=== PATIENT | female | born 1985 | race African-American/Black ===

== ENCOUNTER 2017-01-31 07:23 | Emergency (ER) | payer SELFPAY ==
[~2017-01-31] VITALS: Ht 154.9 cm; Wt 68.0 kg
[~2017-01-31 07:23] MED LIST: NITR100C62 PO
[2017-01-31 07:40] VITALS: BP 148/85
[2017-01-31] MEDS ORDERED: SULF1TAB24 PO (08:03)
--- NOTE | 2017-01-31 08:03 | PHYS DOC ---
Past Medical History Past Medical History: No Pertinent History Past Surgical History: No Surgical History Alcohol Use: None Drug Use: Marijuana Adult General Chief Complaint Chief Complaint: OTHER COMPLAINTS HPI HPI Patient is a 31 year old female who presents with an abscess of the left great toe that she noted 3 days ago. Patient states the area started draining this morning while she was in the shower. Patient denies any fever. Denies any history of diabetes. Denies any other medical problems. Review of Systems Review of Systems Constitutional: Denies fever or chills [] Musculoskeletal: Denies back pain or joint pain [] Integument: abscess of the left great toe Neurologic: Denies headache, focal weakness or sensory changes [] Allergies Allergies Allergies Coded Allergies Type Severity Reaction Last Updated Verified No Known Drug Allergies 01/31/17 No Physical Exam Physical Exam Constitutional: Well developed, well nourished, no acute distress, non-toxic appearance. [] Skin: Warm, dry, no erythema, no rash. [] Back: Left great toe has a tiny open wound at the MTP joint on the ventral aspect with yellow drainage and surrounding approx. 1 cm of cellulitis. The area is warm to touch and very fluctuant. Neurovascular exam is intact to the left great toe. Extremities: No tenderness, no cyanosis, no clubbing, ROM intact, no edema. [] Neurologic: Alert and oriented X 3, normal motor function, normal sensory function, no focal deficits noted. [] Psychologic: Affect normal, judgement normal, mood normal. [] Current Patient Data Vital Signs Vital Signs Date Time Temp Pulse Resp B/P (MAP) Pulse Ox O2 Delivery O2 Flow Rate FiO2 01/31/17 07:40 98.3 82 18 148/85 (106) 99 Room Air 98.3 EKG EKG [] Radiology/Procedures Radiology/Procedures Indication: abscess and cellulitis of the left great toe Procedure: The patient was positioned appropriately. Local anesthesia was not applicable. Mild amount of yellow purulent bloody material was expressed. The drainage cavity was irrigated and covered. The patients tetanus status updated as needed. The patient tolerated the procedure well. Complications: none.[] Course & Med Decision Making Course & Med Decision Making Pertinent Labs and Imaging studies reviewed. (See chart for details) Patient has an abscess of the left great toe that was drained by me as noted in procedures. This is a superficial abscess with cellulitis. Patient was placed on Bactrim. Tetanus is up-to-date. She was provided wound care instructions as well as return precautions. She has no history of diabetes or vascular disease. She is to follow-up with her own PCP in 1-2 weeks. She was instructed to return to the ED if symptoms worsen. Dragon Disclaimer Dragon Disclaimer This electronic medical record was generated, in whole or in part, using a voice recognition dictation system. Departure Departure Impression: Primary Impression: Cellulitis and abscess of toe of left foot Disposition: HOME, SELF-CARE Condition: STABLE Referrals: NO PCP (PCP) Follow-up with your doctor in 1-2 weeks Patient Instructions: Abscess, Care After, Cellulitis, [id number] Additional Instructions: You were seen with an abscess with cellulitis of the left great toe. Keep the area clean and dry. Soak the area in Epson salted water twice a day. Complete your antibiotics. Follow-up with your doctor in 1-2 weeks. Return to the ED if symptoms worsen. Scripts Sulfamethoxazole/Trimethoprim (BACTRIM DS TABLET) 1 Each Tablet 1 TAB PO BID, #20 TAB Prov: KRISTA HERNANDEZ APRN 01/31/17 KRISTA HERNANDEZ APRN Jan 31, 2017 08:03
== END 2017-01-31 08:13 | disposition home or self-care (01) ==
LOC: ER 07:23
DX: L03.032 Cellulitis of left toe (principal); L02.612 Cutaneous abscess of left foot
CPT/HCPCS: 10060; 99283-25

== ENCOUNTER 2017-02-24 11:27 | Emergency (ER) | payer SELFPAY ==
[~2017-02-24] VITALS: Ht 157.5 cm; Wt 65.8 kg
[~2017-02-24 11:27] MED LIST changes: +SULF1TAB24 PO
--- NOTE | 2017-02-24 11:35 | PHYS DOC ---
Past Medical History Past Medical History: No Pertinent History Past Surgical History: No Surgical History Alcohol Use: None Drug Use: Marijuana Adult General Chief Complaint Chief Complaint: ABDOMINAL PAIN HPI HPI Patient is a 31 year old female who presents with is charge and irritation. She states his been going on for about 3 days. It's a clear discharge. She states also "smells funny" she also states that she feels slight discomfort when she urinates. She states she is sexually active she has had gonorrhea and Chlamydia in the past but is been several years ago with a different sexual partner. She denies any nausea vomiting or abdominal pain. Review of Systems Review of Systems Constitutional: Denies fever or chills [] Eyes: Denies change in visual acuity, redness, or eye pain [] HENT: Denies nasal congestion or sore throat [] Respiratory: Denies cough or shortness of breath [] Cardiovascular: No additional information not addressed in HPI [] GI: Denies abdominal pain, nausea, vomiting, bloody stools or diarrhea [] : Positive for dysuria. Musculoskeletal: Denies back pain or joint pain [] Integument: Denies rash or skin lesions [] Neurologic: Denies headache, focal weakness or sensory changes [] Endocrine: Denies polyuria or polydipsia [] Allergies Allergies Allergies Coded Allergies Type Severity Reaction Last Updated Verified No Known Drug Allergies 01/31/17 No Physical Exam Physical Exam Constitutional: Well developed, well nourished, no acute distress, non-toxic appearance. [] HENT: Normocephalic, atraumatic, bilateral external ears normal, oropharynx moist, no oral exudates, nose normal. [] Eyes: PERRLA, EOMI, conjunctiva normal, no discharge. [] Neck: Normal range of motion, no tenderness, supple, no stridor. [] Cardiovascular:Heart rate regular rhythm, no murmur [] Lungs & Thorax: Bilateral breath sounds clear to auscultation [] Abdomen/pelvic exam: Bowel sounds normal, soft, no tenderness, no masses, no pulsatile masses. Pelvic Exam: Professor Of Radiology present Abdomen: Nontender External Genitalia: Normal Skin Speculum: Normal vaginal mucosa, normal cervical discharge Bimanual: No adnexal masses or tenderness, No CMT Skin: Warm, dry, no erythema, no rash. [] Back: No tenderness, no CVA tenderness. [] Extremities: No tenderness, no cyanosis, no clubbing, ROM intact, no edema. [] Neurologic: Alert and oriented X 3, normal motor function, normal sensory function, no focal deficits noted. [] Psychologic: Affect normal, judgement normal, mood normal. [] Current Patient Data Vital Signs Vital Signs Date Time Temp Pulse Resp B/P (MAP) Pulse Ox O2 Delivery O2 Flow Rate FiO2 02/24/17 11:38 98.6 79 18 118/57 (77) 98 Room Air 98.6 Lab Values Laboratory Tests Test 02/24/17 11:48 02/24/17 12:41 02/24/17 13:15 POC Urine HCG, Qualitative Hcg negative (Negative) White Blood Count 5.8 x10^3/uL (4.0-11.0) Red Blood Count 4.57 x10^6/uL (3.50-5.40) Hemoglobin 12.7 g/dL (12.0-15.5) Hematocrit 37.9 % (36.0-47.0) Mean Corpuscular Volume 83 fL (79-100) Mean Corpuscular Hemoglobin 28 pg (25-35) Mean Corpuscular Hemoglobin Concent 34 g/dL (31-37) Red Cell Distribution Width 17.3 % (11.5-14.5) H Platelet Count 290 x10^3/uL (140-400) Neutrophils (%) (Auto) 56 % (31-73) Lymphocytes (%) (Auto) 31 % (24-48) Monocytes (%) (Auto) 10 % (0-9) H Eosinophils (%) (Auto) 2 % (0-3) Basophils (%) (Auto) 2 % (0-3) Neutrophils # (Auto) 3.3 x10^3uL (1.8-7.7) Lymphocytes # (Auto) 1.8 x10^3/uL (1.0-4.8) Monocytes # (Auto) 0.6 x10^3/uL (0.0-1.1) Eosinophils # (Auto) 0.1 x10^3/uL (0.0-0.7) Basophils # (Auto) 0.1 x10^3/uL (0.0-0.2) Sodium Level 139 mmol/L (136-145) Potassium Level 4.0 mmol/L (3.5-5.1) Chloride Level 104 mmol/L (98-107) Carbon Dioxide Level 26 mmol/L (21-32) Anion Gap 9 (6-14) Blood Urea Nitrogen 19 mg/dL (7-20) Creatinine 0.7 mg/dL (0.6-1.0) Estimated GFR (Cockcroft-Gault) 118.1 Glucose Level 85 mg/dL (70-99) Calcium Level 9.0 mg/dL (8.5-10.1) Total Bilirubin 0.2 mg/dL (0.2-1.0) Direct Bilirubin < 0.1 mg/dL (0.0-0.2) Aspartate Amino Transferase (AST) 20 U/L (15-37) Alanine Aminotransferase (ALT) 26 U/L (14-59) Alkaline Phosphatase 76 U/L (46-116) Total Protein 7.9 g/dL (6.4-8.2) Albumin 4.0 g/dL (3.4-5.0) Urine Collection Type Unknown Urine Color Yellow Urine Clarity Clear Urine pH 6.0 Urine Specific [place] 1.020 Urine Protein Negative mg/dL (NEG-TRACE) Urine Glucose (UA) Negative mg/dL (NEG) Urine Ketones (Stick) Negative mg/dL (NEG) Urine Blood Negative (NEG) Urine Nitrite Negative (NEG) Urine Bilirubin Negative (NEG) Urine Urobilinogen Dipstick 0.2 mg/dL (0.2 mg/dL) Urine Leukocyte Esterase Negative (NEG) Urine RBC 0 /HPF (0-2) Urine WBC Occ /HPF (0-4) Urine Squamous Epithelial Cells Few /LPF Urine Bacteria 0 /HPF (0-FEW) Urine Mucus Slight /LPF Laboratory Tests 02/24/17 12:41 Laboratory Tests 02/24/17 12:41 Microbiology 02/24/17 Wet Prep - Final, Complete Laboratory Tests Test 02/24/17 11:48 02/24/17 12:41 02/24/17 13:15 POC Urine HCG, Qualitative Hcg negative (Negative) White Blood Count 5.8 x10^3/uL (4.0-11.0) Red Blood Count 4.57 x10^6/uL (3.50-5.40) Hemoglobin 12.7 g/dL (12.0-15.5) Hematocrit 37.9 % (36.0-47.0) Mean Corpuscular Volume 83 fL (79-100) Mean Corpuscular Hemoglobin 28 pg (25-35) Mean Corpuscular Hemoglobin Concent 34 g/dL (31-37) Red Cell Distribution Width 17.3 % (11.5-14.5) H Platelet Count 290 x10^3/uL (140-400) Neutrophils (%) (Auto) 56 % (31-73) Lymphocytes (%) (Auto) 31 % (24-48) Monocytes (%) (Auto) 10 % (0-9) H Eosinophils (%) (Auto) 2 % (0-3) Basophils (%) (Auto) 2 % (0-3) Neutrophils # (Auto) 3.3 x10^3uL (1.8-7.7) Lymphocytes # (Auto) 1.8 x10^3/uL (1.0-4.8) Monocytes # (Auto) 0.6 x10^3/uL (0.0-1.1) Eosinophils # (Auto) 0.1 x10^3/uL (0.0-0.7) Basophils # (Auto) 0.1 x10^3/uL (0.0-0.2) Sodium Level 139 mmol/L (136-145) Potassium Level 4.0 mmol/L (3.5-5.1) Chloride Level 104 mmol/L (98-107) Carbon Dioxide Level 26 mmol/L (21-32) Anion Gap 9 (6-14) Blood Urea Nitrogen 19 mg/dL (7-20) Creatinine 0.7 mg/dL (0.6-1.0) Estimated GFR (Cockcroft-Gault) 118.1 Glucose Level 85 mg/dL (70-99) Calcium Level 9.0 mg/dL (8.5-10.1) Total Bilirubin 0.2 mg/dL (0.2-1.0) Direct Bilirubin < 0.1 mg/dL (0.0-0.2) Aspartate Amino Transferase (AST) 20 U/L (15-37) Alanine Aminotransferase (ALT) 26 U/L (14-59) Alkaline Phosphatase 76 U/L (46-116) Total Protein 7.9 g/dL (6.4-8.2) Albumin 4.0 g/dL (3.4-5.0) Urine Collection Type Unknown Urine Color Yellow Urine Clarity Clear Urine pH 6.0 Urine Specific [place] 1.020 Urine Protein Negative mg/dL (NEG-TRACE) Urine Glucose (UA) Negative mg/dL (NEG) Urine Ketones (Stick) Negative mg/dL (NEG) Urine Blood Negative (NEG) Urine Nitrite Negative (NEG) Urine Bilirubin Negative (NEG) Urine Urobilinogen Dipstick 0.2 mg/dL (0.2 mg/dL) Urine Leukocyte Esterase Negative (NEG) Urine RBC 0 /HPF (0-2) Urine WBC Occ /HPF (0-4) Urine Squamous Epithelial Cells Few /LPF Urine Bacteria 0 /HPF (0-FEW) Urine Mucus Slight /LPF Laboratory Tests 02/24/17 12:41 Laboratory Tests 02/24/17 12:41 Microbiology 02/24/17 Wet Prep - Final, Complete EKG EKG [] Radiology/Procedures Radiology/Procedures RUN DATE: 02/24/17 PAGE 1 RUN TIME: 1232 [facility] [address] [place] [address] Lopez Heaton M.D., [employer]ging [employer] PATIENT: SUJATA GONSALEZ Caitlin ACCT: [id number] LOC: [facility] U : [id number] AGE/SX: 31/F ROOM: REG : 02/24/[address]: MITUL DALE MD : 1985 BED: DIS : STATUS: REG [facility] TLOC: SPEC #: [id number] CEE: 02/24/17 STATUS: COMP REQ #: [id number] RECD: 02/24/[address] [facility] [address]: MITUL DALE MD SOURCE: VAGINAL ENTR: 02/24/[address] [facility] [address]: ROLANDO GUTIÉRREZ [facility]: ORDERED: WET PREP COMMENTS: Has specimen been collected/obtained? Y Procedure Result WET PREP Final YEAST NONE SEEN TRICHOMONAS NONE SEEN CLUE CELLS CLUE CELLS PRESENT ALTERED JAMI ALTERED JAMI PRESENT SUGGESTIVE OF BACTERIAL VAGINOSIS WBCS FEW END OF REPORT Impressions: Bacterial vaginosis Course & Med Decision Making Course & Med Decision Making Pertinent Labs and Imaging studies reviewed. (See chart for details) Pelvic exam did not show any tenderness. There was no bleeding. Wet mount is positive for bacterial vaginosis. She's being discharged with Flagyl for 7 days. Return precautions given. She is agreeable to the plan and being discharged in stable condition at this time. Dragon Disclaimer Dragon Disclaimer This electronic medical record was generated, in whole or in part, using a voice recognition dictation system. Departure Departure Impression: Primary Impression: Bacterial vaginosis Disposition: 01 HOME, SELF-CARE Condition: STABLE Referrals: NO PCP (PCP) Patient Instructions: Bacterial Vaginosis Additional Instructions: You have an overgrowth of the normal bacteria in your vagina that will need antibiotics for the next 7 days. This is not a sexually transmitted infection. Do not drink any alcohol or taking this medicine as alcohol this medicine does not mix and make sure sick to her stomach. Return back to the ER if you have any pain, nausea vomiting, fevers, or other concerns. Scripts Metronidazole (FLAGYL) 500 Mg Tablet 500 TAB PO BID, #14 TAB Prov: MITUL DALE MD 02/24/17 MITUL DALE MD Feb 24, 2017 11:35
[2017-02-24 12:55] LABS: BASO # 0.1 x10^3/uL (0.0-0.2); BASO % 2 % (0-3); EOS % 2 % (0-3); HEMATOCRIT 37.9 % (36.0-47.0); HEMOGLOBIN 12.7 g/dL (12.0-15.5); LYMPH # 1.8 x10^3/uL (1.0-4.8); LYMPH % 31 % (24-48); MEAN CORPUSCULAR HEMOGLOBIN 28 pg (25-35); MEAN CORPUSCULAR HGB CONC 34 g/dL (31-37); MEAN CORPUSCULAR VOLUME 83 fL (79-100); MONO % 10 % (0-9); NEUT % 56 % (31-73); PLATELET COUNT 290 x10^3/uL (140-400); RED BLOOD COUNT 4.57 x10^6/uL (3.50-5.40); RED CELL DISTRIBUTION WIDTH 17.3 % (11.5-14.5); WHITE BLOOD COUNT 5.8 x10^3/uL (4.0-11.0)
[2017-02-24 13:08] LABS: ANION GAP 9 (6-14); BLOOD UREA NITROGEN 19 mg/dL (7-20); CARBON DIOXIDE 26 mmol/L (21-32); CHLORIDE 104 mmol/L (98-107); CREATININE 0.7 mg/dL (0.6-1.0); GFR 118.1; GLUCOSE 85 mg/dL (70-99); SODIUM 139 mmol/L (136-145)
[2017-02-24 13:13] LABS: ALK PHOS 76 U/L (46-116); ALT (SGPT) 26 U/L (14-59); AST (SGOT) 20 U/L (15-37); DIRECT BILIRUBIN < 0.1 mg/dL (0.0-0.2); TOTAL BILIRUBIN 0.2 mg/dL (0.2-1.0); TOTAL PROTEIN 7.9 g/dL (6.4-8.2)
[2017-02-24 13:22] LABS: BILIRUBIN,URINE NEGATIVE (NEG); GLUCOSE,URINE NEGATIVE (NEG); NITRITE,URINE NEGATIVE (NEG); PROTEIN,URINE NEGATIVE (NEG-TRACE); UROBILINOGEN,URINE 0.2 mg/dL (0.2 mg/dL)
[2017-02-24 13:40] VITALS: BP 132/67
[2017-02-24 13:40] LABS: BACTERIA,URINE 0 /HPF (0-FEW); RBC,URINE 0 /HPF (0-2); SQUAMOUS EPITHELIAL CELL,UR FEW /LPF; WBC,URINE OCC /HPF (0-4)
[2017-02-24] MEDS ORDERED: METR500T PO (13:48)
== END 2017-02-24 13:52 | disposition home or self-care (01) ==
LOC: ER 11:27
DX: N76.0 Acute vaginitis (principal)
CPT/HCPCS: 36415; 80048; 80076; 81001; 81025; 85025; 87491; 87591; 99284; Q0111

== ENCOUNTER 2019-02-12 08:27 | Emergency (ER) | payer SELFPAY ==
[~2019-02-12] VITALS: Ht 154.9 cm; Wt 70.3 kg
[~2019-02-12 08:27] MED LIST changes: +METR500T PO
[2019-02-12 09:54] LABS: BILIRUBIN,URINE NEGATIVE (NEG); CLARITY,URINE CLEAR; COLOR,URINE YELLOW; NITRITE,URINE NEGATIVE (NEG); PH,URINE 6.5; PROTEIN,URINE NEGATIVE (NEG-TRACE); UROBILINOGEN,URINE 0.2 mg/dL (0.2 mg/dL)
[2019-02-12 10:02] LABS: BACTERIA,URINE FEW /HPF (0-FEW); SQUAMOUS EPITHELIAL CELL,UR MOD /LPF; WBC,URINE OCC /HPF (0-4)
[2019-02-12 10:03] LABS: RBC,URINE 0 /HPF (0-2)
[2019-02-12] MEDS ORDERED: cefTRIAXone IM 250 MG VIAL IM ONE (10:30)
[2019-02-12] MEDS ORDERED: AZITHROMYCIN 250 MG TABLET. PO ONE (10:30)
[2019-02-12] MEDS ORDERED: METR-34 PO (10:41)
--- NOTE | 2019-02-12 10:54 | PHYS DOC ---
Past Medical History Past Medical History: No Pertinent History Past Surgical History: No Surgical History Alcohol Use: None Drug Use: Marijuana Adult General Chief Complaint Chief Complaint: ABDOMINAL PAIN HPI HPI Patient is a 33 year old [F TWO WEEKS of vaginal discharge some pelvic pain after intercourse as well as lower abdominal pain for the last 2-3 weeks. Feels similar to last time she had bacterial vaginosis no vomiting Review of Systems Review of Systems Constitutional: Denies fever or chills [] Cardiovascular: No additional information not addressed in HPI [] GI: \ Neurologic: Denies headache, focal weakness or sensory changes [] Endocrine: Denies polyuria or polydipsia [] All other systems were reviewed and found to be within normal limits, except as documented in this note. Current Medications Current Medications Current Medications Medications (Trade) Dose Ordered Sig/Obed Start Time Stop Time Status Last Admin Dose Admin Azithromycin (Zithromax) 1,000 mg 1X ONCE 02/12/19 10:30 02/12/19 10:31 DC Ceftriaxone Sodium (Rocephin Im) 250 mg 1X ONCE 02/12/19 10:30 02/12/19 10:31 DC Allergies Allergies Allergies Coded Allergies Type Severity Reaction Last Updated Verified No Known Drug Allergies 01/31/17 No Physical Exam Physical Exam Constitutional: Well developed, well nourished, no acute distress, non-toxic appearance. [] HENT: Normocephalic, atraumatic, bilateral external ears normal, oropharynx moist, no oral exudates, nose normal. [] Eyes: PERRLA, EOMI, conjunctiva normal, no discharge. [] Neck: Normal range of motion, no tenderness, supple, no stridor. [] Cardiovascular:Heart rate regular rhythm, no murmur [] Lungs & Thorax: Bilateral breath sounds clear to auscultation [] Abdomen: Bowel sounds normal, soft MILD SUPRAPUBIC TENDERNESS no masses, no pulsatile masses. [] Skin: Warm, dry, no erythema, no rash. [] Back: No tenderness, no CVA tenderness. [] Extremities: No tenderness, no cyanosis, no clubbing, ROM intact, no edema. [] PELVIC MODERATE WHITE DISCHARGE NEG CMT OR ADNEXAL Neurologic: Alert and oriented X 3, normal motor function, normal sensory function, no focal deficits noted. [] Psychologic: Affect normal, judgement normal, mood normal. [] Current Patient Data Vital Signs Vital Signs Date Time Temp Pulse Resp B/P (MAP) Pulse Ox O2 Delivery O2 Flow Rate FiO2 02/12/19 09:25 98.2 72 18 147/79 (101) 99 Room Air 98.2 Lab Values Laboratory Tests Test 02/12/19 09:25 02/12/19 09:29 Urine Collection Type Unknown Urine Color Yellow Urine Clarity Clear Urine pH 6.5 Urine Specific Left Hand 1.025 Urine Protein Negative mg/dL (NEG-TRACE) Urine Glucose (UA) Negative mg/dL (NEG) Urine Ketones (Stick) Negative mg/dL (NEG) Urine Blood Negative (NEG) Urine Nitrite Negative (NEG) Urine Bilirubin Negative (NEG) Urine Urobilinogen Dipstick 0.2 mg/dL (0.2 mg/dL) Urine Leukocyte Esterase Negative (NEG) Urine RBC 0 /HPF (0-2) Urine WBC Occ /HPF (0-4) Urine Squamous Epithelial Cells Mod /LPF Urine Bacteria Few /HPF (0-FEW) Urine Mucus Marked /LPF POC Urine HCG, Qualitative Hcg negative (Negative) Microbiology 02/12/19 Wet Prep - Final, Complete EKG EKG [] Radiology/Procedures Radiology/Procedures [] Course & Med Decision Making Course & Med Decision Making Pertinent Labs and Imaging studies reviewed. (See chart for details) []DX: BV RX FLAGYL GAVE CTX AND AZITHRO IN ER WELL. ABDO EXAM BENIGN, SUBACUTE TIMEFRAME NO EVIDENCE OF PID Dragon Disclaimer Dragon Disclaimer This electronic medical record was generated, in whole or in part, using a voice recognition dictation system. Departure Departure Impression: Primary Impression: Bacterial vaginosis Disposition: HOME, SELF-CARE Condition: STABLE Patient Instructions: Bacterial Vaginosis, [id number] Scripts Metronidazole (METRONIDAZOLE) 500 Mg Tablet 1 TAB PO BID, #14 TAB Prov: LULI BRUNSON MD 02/12/19 LULI BRUNSON MD Feb 12, 2019 10:54
[2019-02-12 11:04] VITALS: BP 145/66
[2019-02-13 17:09] LABS: GC PROBE Negative (Negative)
== END 2019-02-12 11:05 | disposition home or self-care (01) ==
LOC: ER 08:27
DX: N76.0 Acute vaginitis (principal); B96.89 Other specified bacterial agents as the cause of diseases classified elsewhere
CPT/HCPCS: 81001; 81025; 87491; 87591; 96372; 99284; J0696; Q0111; Q0144

== ENCOUNTER 2020-06-28 10:32 | Emergency (ER) | payer SELFPAY ==
[~2020-06-28 10:32] MED LIST changes: +METR-34 PO
[2020-06-28] MEDS ORDERED: cefTRIAXone IM 500 MG VIAL. IM ONE ×2 (11:20→11:31)
[2020-06-28] MEDS ORDERED: DOXYCYCLINE HYCLATE 100 MG TABLET ONE ×2 (11:20→11:31)
[2020-06-28] MEDS ORDERED: metroNIDAZOLE 500 MG TABLET ONE ×2 (11:20→11:31)
[2020-06-28 14:36] LABS: BILIRUBIN,URINE NEGATIVE (NEG); CLARITY,URINE CLEAR; COLOR,URINE YELLOW; NITRITE,URINE NEGATIVE (NEG); PROTEIN,URINE NEGATIVE (NEG-TRACE); UROBILINOGEN,URINE 0.2 mg/dL (0.2 mg/dL)
[2020-06-28 14:51] LABS: AMORPHOUS SEDIMENT,UR PRESENT /HPF
[2020-06-28 14:55] LABS: HYALINE CASTS, URINE OCCASIONAL /HPF
[2020-06-28 14:57] LABS: BACTERIA,URINE 0 /HPF (0-FEW); RBC,URINE 0 /HPF (0-2)
[2020-06-30 12:49] LABS: GC PROBE Negative (Negative)
== END 2020-06-28 11:55 | disposition home or self-care (01) ==
LOC: ER 10:32
DX: N93.9 Abnormal uterine and vaginal bleeding, unspecified (principal); Z20.2 Contact with and (suspected) exposure to infections with a predominantly sexual mode of transmission; K62.5 Hemorrhage of anus and rectum
CPT/HCPCS: 81001; 81025; 87086; 87106; 87491; 87591; 96372; 99283; J0696; Q0111

== ENCOUNTER 2020-09-19 14:12 | Emergency (ER) | payer SELFPAY ==
[~2020-09-19] VITALS: Ht 154.9 cm; Wt 76.7 kg
[~2020-09-19 14:12] MED LIST changes: +DOXY100C2 PO
[2020-09-19 14:18] VITALS: BP 161/79
[2020-09-19 14:53] LABS: BILIRUBIN,URINE NEGATIVE (NEG); CLARITY,URINE CLEAR; COLOR,URINE YELLOW; NITRITE,URINE NEGATIVE (NEG); PH,URINE 5.5 (<5.0-8.0); PROTEIN,URINE NEGATIVE (NEG-TRACE); UROBILINOGEN,URINE 0.2 mg/dL (0.2 mg/dL)
[2020-09-19 15:02] LABS: RBC,URINE 0 /HPF (0-2)
[2020-09-19 15:03] LABS: BACTERIA,URINE FEW /HPF (0-FEW); WBC,URINE OCC /HPF (0-4)
[2020-09-19] MEDS ORDERED: FLUCONAZOLE 100 MG TABLET. PO ONE (15:15)
[2020-09-19] MEDS ORDERED: FLUC150T PO (16:13)
[2020-09-19] MEDS ORDERED: METR500T PO (16:13)
--- NOTE | 2020-09-19 16:13 | PHYS DOC ---
Past Medical History Past Medical History: No Pertinent History (MARIBELLKRISTA Freeman ASSISTANT DIRECTOR OF PLANT OPERATIONS) Past Surgical History: No Surgical History (MARIBELLKRISTA Freeman ASSISTANT DIRECTOR OF PLANT OPERATIONS) Smoking Status: Never Smoker Alcohol Use: None Drug Use: Marijuana (KRISTA HERNANDEZ Caitlin ASSISTANT DIRECTOR OF PLANT OPERATIONS) General Adult EDM: Chief Complaint: SEXUALLY TRANSMITTED DISEASE HPI: HPI: Patient is a 34 year old female who presents to the ED today complaining of vaginal itching and discharge that began a couple days ago after completing antibiotics for pelvic inflammatory disease. Patient states she has tried Monistat with no relief. Denies any abdominal pain or pelvic pain. Denies any fever, nausea or vomiting (KRISTA HERNANDEZ Caitlin ASSISTANT DIRECTOR OF PLANT OPERATIONS) Review of Systems: Review of Systems: Constitutional: Denies fever or chills. [] GI: Denies abdominal pain, nausea, vomiting, bloody stools or diarrhea. [] : Reports vaginal discharge denies dysuria. [] Musculoskeletal: Denies back pain or joint pain. [] Integument: Denies rash. [] Neurologic: Denies headache, focal weakness or sensory changes. [] Psychiatric: Denies depression or anxiety. [] (MARIBELLPeteKRISTA Caitlin ASSISTANT DIRECTOR OF PLANT OPERATIONS) Heart Score: C/O Chest Pain: N/A Risk Factors: Risk Factors: DM, Current or recent (<one month) smoker, HTN, HLP, family history of CAD, obesity. Risk Scores: Score 0 - 3: 2.5% MACE over next 6 weeks - Discharge Home Score 4 - 6: 20.3% MACE over next 6 weeks - Admit for Clinical Observation Score 7 - 10: 72.7% MACE over next 6 weeks - Early Invasive Strategies (JACQUELINENICHELLEKRISTA Caitlin ASSISTANT DIRECTOR OF PLANT OPERATIONS) Current Medications: Current Medications Medications (Trade) Dose Ordered Sig/Obed Start Time Stop Time Status Last Admin Dose Admin Fluconazole (Diflucan) 150 mg 1X ONCE 09/19/20 15:15 09/19/20 15:16 DC 09/19/20 14:52 150 MG (MARIBELLPeteKRISTA Caitlin ASSISTANT DIRECTOR OF [employer]ANT OPERATIONS) Allergies: Allergies: Allergies Coded Allergies Type Severity Reaction Last Updated Verified No Known Drug Allergies 09/19/20 No (JACQUELINEKRISTA STEWARD ASSISTANT DIRECTOR OF PLANT OPERATIONS) Physical Exam: PE: Constitutional: Well developed, well nourished, no acute distress, non-toxic appearance. [] Abdomen: Bowel sounds normal, soft, no tenderness, no masses, no pulsatile masses. [] Pelvic exam External pelvic appears normal, cervix is visualized, closed, no CMT, no adnexal tenderness, thick white discharge in the vaginal vault Skin: Warm, dry, no erythema, no rash. [] Back: No tenderness, no CVA tenderness. [] Extremities: No tenderness, no cyanosis, no clubbing, ROM intact, no edema. [] Neurologic: Alert and oriented X 3, normal motor function, normal sensory function, no focal deficits noted. [] Psychologic: Affect normal, judgement normal, mood normal. [] (KRISTA HERNANDEZ APRN) Current Patient Data: Labs: Laboratory Tests Test 09/19/20 14:14 09/19/20 14:23 Urine Collection Type Unknown Urine Color Yellow Urine Clarity Clear Urine pH 5.5 (<5.0-8.0) Urine Specific [place] 1.020 (1.000-1.030) Urine Protein Negative mg/dL (NEG-TRACE) Urine Glucose (UA) Negative mg/dL (NEG) Urine Ketones (Stick) Negative mg/dL (NEG) Urine Blood Negative (NEG) Urine Nitrite Negative (NEG) Urine Bilirubin Negative (NEG) Urine Urobilinogen Dipstick 0.2 mg/dL (0.2 mg/dL) Urine Leukocyte Esterase Small (NEG) Urine RBC 0 /HPF (0-2) Urine WBC Occ /HPF (0-4) Urine Squamous Epithelial Cells Many /LPF Urine Bacteria Few /HPF (0-FEW) Urine Mucus Marked /LPF POC Urine HCG, Qualitative Hcg negative (Negative) Microbiology 09/19/20 Wet Prep - Final, Complete Vital Signs: Vital Signs Date Time Temp Pulse Resp B/P (MAP) Pulse Ox O2 Delivery O2 Flow Rate FiO2 09/19/20 14:18 98.1 72 18 161/79 (106) 97 Room Air 98.1 (KRISTA HERNANDEZ ASSISTANT DIRECTOR OF [employer]ANT OPERATIONS) EKG: EKG: [] (KRISTA HERNANDEZ APRN) Radiology/Procedures: Radiology/Procedures: [] (KRISTA HERNANDEZ APRN) Course & Med Decision Making: Course & Med Decision Making Pertinent Labs and Imaging studies reviewed. (See chart for details) This is a 34-year-old female patient presenting to the ED today with vaginal discharge and itching, symptoms began after taking antibiotics. Patient has used Monistat. Negative urine hCG, UA noted for small amount of leukocytes notes contaminated with squamous cells. Wet prep noted for BV. Discharged on Diflucan and Flagyl. Follow-up with [facility] MANAGER. This patient has been treated multiple times for STDs that I expressed my concern on whether the men she is having a relationship are a being treated. I encourage her to contact them and ask them to get treated (KRISTA HERNANDEZ APRN) Dragon Disclaimer: Dragon Disclaimer: This electronic medical record was generated, in whole or in part, using a voice recognition dictation system. (KRISTA HERNANDEZ APRN) Departure Departure Impression: Primary Impression: Bacterial vaginosis Disposition: HOME / SELF CARE / HOMELESS Condition: STABLE Referrals: NO PCP (PCP) FAY ORTIZ MD follow up next week Patient Instructions: Bacterial Vaginosis, [id number] Additional Instructions: You were evaluated in the emergency room, you have bacterial vaginosis, complete your antibiotics, take the prescribed fluconazole in 7 days. Follow-up with your BENCH MANAGER next week Scripts Fluconazole (DIFLUCAN) 150 Mg Tablet 1 TAB PO ONCE, #1 TAB take in 7 days Prov: KRISTA HERNANDEZ APRN 09/19/20 Metronidazole (FLAGYL) 500 Mg Tablet 1 TAB PO BID, #14 TAB Prov: KRISTA HERNANDEZ APRN 09/19/20 Attending Signature Attending Signature I have participated in the care of this patient and I have reviewed and agree with all pertinent clinical information above including history, exam, and recommendations. (KATHERINE OLIVARES DO) KRISTA HERNANDEZ APRN September 19, 2020 16:13 KATHERINE OLIVARES DO September 19, 2020 17:47
[2020-09-21 18:12] LABS: GC PROBE Negative (Negative)
== END 2020-09-19 16:28 | disposition home or self-care (01) ==
LOC: ER 14:12
DX: N76.0 Acute vaginitis (principal); B96.89 Other specified bacterial agents as the cause of diseases classified elsewhere
CPT/HCPCS: 81001; 81025; 87086; 87491; 87591; 99284; Q0111; 99283

== ENCOUNTER 2021-08-12 09:08 | Emergency (ER) | payer SELFPAY ==
[~2021-08-12] VITALS: Ht 154.9 cm; Wt 84.9 kg
[~2021-08-12 09:08] MED LIST changes: -DOXY100C2 PO; +DOXY100C3 PO; +FLUC150T PO
[2021-08-12 09:10] VITALS: BP 139/84
[2021-08-12] MEDS ORDERED: cefTRIAXone IM 500 MG VIAL. IM ONE (09:30)
--- NOTE | 2021-08-12 09:34 | PHYS DOC ---
Past Medical History Past Medical History: No Pertinent History Past Surgical History: No Surgical History Smoking Status: Never Smoker Alcohol Use: None Drug Use: Marijuana General Adult EDM: Chief Complaint: SEXUALLY TRANSMITTED DISEASE HPI: HPI: Patient is a 35 year old female who presents with 5 days of white vaginal discharge, generalized irritation vaginally and a foul smell after intercourse. Denies pain with intercourse. Patient denies abdominal pain, nausea, vomiting, diarrhea, back pain, burning with urination, headache, dizziness, chest pain, shortness of air. No other medical history. Denies any pain at this time. Review of Systems: Review of Systems: Constitutional: Denies fever or chills. [] Eyes: Denies change in visual acuity. [] HENT: Denies nasal congestion or sore throat. [] Respiratory: Denies cough or shortness of breath. [] Cardiovascular: Denies chest pain or edema. [] GI: Denies abdominal pain, nausea, vomiting, bloody stools or diarrhea. [] : Denies dysuria. +Vaginal discharge. +Vaginal irritation. +Foul smell after sex.[] Musculoskeletal: Denies back pain or joint pain. [] Integument: Denies rash. [] Neurologic: Denies headache, focal weakness or sensory changes. [] Endocrine: Denies polyuria or polydipsia. [] Lymphatic: Denies swollen glands. [] Psychiatric: Denies depression or anxiety. [] Heart Score: C/O Chest Pain: No Allergies: Allergies: Allergies Coded Allergies Type Severity Reaction Last Updated Verified No Known Drug Allergies 08/12/21 No Physical Exam: PE: Constitutional: Well developed, well nourished, no acute distress, non-toxic appearance. [] HENT: Normocephalic, atraumatic, bilateral external ears normal, oropharynx moist, no oral exudates, nose normal. [] Eyes: PERRLA, EOMI, conjunctiva normal, no discharge. [] Neck: Normal range of motion, no tenderness, supple, no stridor. [] Cardiovascular:Heart rate regular rhythm, no murmur [] Lungs & Thorax: Bilateral breath sounds clear to auscultation [] Abdomen: Bowel sounds normal, soft, no tenderness, no masses, no pulsatile masses. [] Skin: Warm, dry, no erythema, no rash. [] Back: No tenderness, no CVA tenderness. [] Extremities: No tenderness, no cyanosis, no clubbing, ROM intact, no edema. [] Neurologic: Alert and oriented X 3, normal motor function, normal sensory function, no focal deficits noted. [] Psychologic: Affect normal, judgement normal, mood normal. [] Normal physical exam EKG: EKG: [] Radiology/Procedures: Radiology/Procedures: [] Course & Med Decision Making: Course & Med Decision Making Pertinent Labs and Imaging studies reviewed. (See chart for details) See HPI. Alert and oriented x4. Ambulatory steady gait. Speaks in full clear sentences. Skin pink warm and dry. Abdomen is soft and nontender. No CVA tenderness. Patient urine is sent off for chlamydia and gonorrhea. She is self swabbing for wet prep. This is likely bacterial vaginosis due to her symptom presentation. Patient be treated with Rocephin in the ED. [] Dragon Disclaimer: Dragon Disclaimer: This electronic medical record was generated, in whole or in part, using a voice recognition dictation system. Departure Departure Impression: Primary Impression: Concern about sexually transmitted disease in female without diagnosis Additional Impression: Bacterial vaginosis Disposition: HOME / SELF CARE / HOMELESS Condition: STABLE Referrals: NO PCP (PCP) Patient Instructions: Bacterial Vaginosis, Sexually Transmitted Disease Additional Instructions: Follow-up with your veneer drier or primary care physician if needed. Take medications as prescribed and with food. He will be called in 48 hours if your chlamydia or gonorrhea comes back positive. Your wet prep did show bacterial vaginosis today. Do not drink any alcohol with the metronidazole as it would make you very ill and vomit. Scripts Doxycycline Hyclate (DOXYCYCLINE HYCLATE) 100 Mg Capsule 1 CAP PO BID, #14 CAP Prov: SILVANA WILHELM APRN 08/12/21 Metronidazole (METRONIDAZOLE) 500 Mg Tablet 1 TAB PO BID for 7 Days, #14 TAB 0 Refills Prov: SILVANA WILHELM APRN 08/12/21 SILVANA WILHELM APRN Aug 12, 2021 09:34
[2021-08-12 10:08] LABS: BACTERIA,URINE FEW /HPF (0-FEW); RBC,URINE 0 /HPF (0-2)
[2021-08-12] MEDS ORDERED: METR-34 PO (10:26)
[2021-08-12] MEDS ORDERED: DOXY100C3 PO (10:26)
== END 2021-08-12 10:30 | disposition home or self-care (01) ==
LOC: ER 09:08
DX: N76.0 Acute vaginitis (principal); B96.89 Other specified bacterial agents as the cause of diseases classified elsewhere; Z20.2 Contact with and (suspected) exposure to infections with a predominantly sexual mode of transmission
CPT/HCPCS: 81001; 81025; 87491; 87591; 96372; 99283; J0696; Q0111

== ENCOUNTER 2021-09-07 10:32 | Emergency (ER) | payer SELFPAY ==
[~2021-09-07] VITALS: Ht 162.6 cm; Wt 81.8 kg
--- NOTE | 2021-09-07 10:51 | PHYS DOC ---
Past Medical History Past Medical History: No Pertinent History Past Surgical History: No Surgical History Smoking Status: Never Smoker Alcohol Use: None Drug Use: Marijuana Adult General Chief Complaint Chief Complaint: VAGINAL PROBLEM HPI HPI Patient is a 35 year old female who presents with vaginal discharge. Patient was seen in this emergency department a couple weeks earlier when she was treated for STD. She reports antibiotics routinely give her yeast infection. Today, she comes in with symptoms that she feels confident are vaginal yeast infection. Complains of clumpy and itchy discharge from the vagina. No pelvic pain. No flank pain. No fever. Has not resumed sexual activity since she was last evaluated and she was empirically treated at that time. Review of Systems Review of Systems Constitutional: Denies fever or chills HENT: Denies Respiratory: Denies cough GI: Denies abdominal pain : as documented in HPI Musculoskeletal: Denies back Integument: Denies rash All other systems were reviewed and found to be within normal limits, except as documented in this note. Current Medications Current Medications Current Medications Medications (Trade) Dose Ordered Sig/Obed Start Time Stop Time Status Last Admin Dose Admin Fluconazole (Diflucan) 150 mg 1X ONCE 09/07/21 11:00 09/07/21 11:03 DC 09/07/21 11:21 150 MG Allergies Allergies Allergies Coded Allergies Type Severity Reaction Last Updated Verified No Known Drug Allergies 09/07/21 No Physical Exam Physical Exam Constitutional: Well developed, well nourished, no acute distress, non-toxic appearance Neck: Normal range of motion Cardiovascular:Heart rate regular rhythm Lungs & Thorax: normal effort Skin: Warm, dry, no erythema, no rash Back: Normal ROM Extremities: No tenderness Neurologic: Alert and oriented X 3 Psychologic: Affect normal Current Patient Data Vital Signs Vital Signs Date Time Temp Pulse Resp B/P (MAP) Pulse Ox O2 Delivery O2 Flow Rate FiO2 09/07/21 11:21 93 20 150/72 (98) 98 09/07/21 10:50 98.1 98.1 EKG EKG [] Radiology/Procedures Radiology/Procedures [] Course & Med Decision Making Course & Med Decision Making Pertinent Labs and Imaging studies reviewed. (See chart for details) ED summary: Patient seen in the ER briefly for symptoms consistent with yeast infection. She is offered examination but declines. Requesting empiric treatment. In the ER, she is given Diflucan. She is discharged home with the same as a prescription to take in 3 or 4 days of her symptoms or not improved. Recommend she follow-up with her primary care doctor or come back to the ER for any new or severely worsening symptoms Servando Disclaimer Servando Disclaimer This electronic medical record was generated, in whole or in part, using a voice recognition dictation system. Departure Departure Impression: Primary Impression: Vaginal candidiasis Disposition: HOME / SELF CARE / HOMELESS Condition: GOOD Referrals: NO PCP (PCP) Patient Instructions: Candidal Vulvovaginitis, Viph-bp-Bydt Scripts Fluconazole (DIFLUCAN) 150 Mg Tablet 1 TAB PO ONCE, #1 TAB 1 Refill Take 1 tablet on September 10. Repeat 3 days later if continued symptoms Prov: MARILY BOWEN DO 09/07/21 MARILY BOWEN DO Sep 07, 2021 10:51
[2021-09-07] MEDS ORDERED: FLUCONAZOLE 100 MG TABLET. PO ONE (11:00)
[2021-09-07 11:21] VITALS: BP 150/72
[2021-09-07] MEDS ORDERED: FLUC150T PO (11:34)
== END 2021-09-07 11:47 | disposition home or self-care (01) ==
LOC: ER 10:32
DX: B37.3 Candidiasis of vulva and vagina (principal)
CPT/HCPCS: 99283